=== PATIENT | female | born 1995 | race Caucasian/White ===

== ENCOUNTER 2018-07-22 12:24 | Emergency (ER) | payer OTHER ==
[~2018-07-22] VITALS: Ht 170.2 cm; Wt 54.4 kg
[~2018-07-22 12:24] MED LIST: ANAPROX275 MG PO; BIRTH CONTROLL; CELEXA10 MG PO; CONCERTA36 MG PO; FLONASE 0.05%50 MCG NASAL; HYDROCODONE-APA1 TA1 PO; LEVAQUIN 500 M500 MG PO; MACROBID 100 M100 M1 PO; NAPROSYN500 MG PO; ONDANSETRON HCL4 M2 PO; PYRIDIUM100 M1 PO; ZOFRAN ODT4 MG PO
[2018-07-22] MEDS ORDERED: PROAIR RESPICL90 MCG INH (12:37)
[2018-07-22 13:00] LABS: URINE BILIRUBIN NEGATIVE (Negative); URINE BLOOD 2+ (Negative); URINE CLARITY CLEAR; URINE COLOR YELLOW; URINE GLUCOSE-RANDOM NEGATIVE (Negative); URINE KETONES NEGATIVE (Negative); URINE LEUKOCYTES-REFLEX NEGATIVE (Negative); URINE NITRITE-REFLEX NEGATIVE (Negative); URINE PROTEIN NEGATIVE (Negative); URINE UROBILINOGEN 0.2 E.U./dl (0.2-1.0)
[2018-07-22 13:08] LABS: CASTS None Seen /LPF (None Seen); CRYSTALS None Seen /LPF (None Seen); SQUAMOUS 4-10 Moderate /LPF (0-3); URINE RBC 3-10 Few /HPF (0-2)
[2018-07-22 13:12] LABS: ABSOLUTE EOSINOPHILS 0.1 thou/uL (0.0-0.7); ABSOLUTE LYMPHOCYTES 0.7 thou/uL (0.8-5.3); ABSOLUTE MONOCYTES 0.5 thou/uL (0.0-1.2); ABSOLUTE NEUTROPHILS 3.2 thou/uL (1.6-8.1); BASOPHILS 0.6 %; HEMOGLOBIN 13.7 gm/dL (12.0-15.0); MCH 30.4 pg (26.0-34.0); MCHC 34.3 g/dL (28.0-37.0); MCV 88.7 fL (80.0-100.0); MONOCYTES 10.1 %; MPV 8.5 fl. (7.2-11.1); NUCLEATED RBCS 0 /100WBC; PLATELET COUNT* 213 thou/uL (150-400); POLYS 71.3 %; RBC 4.51 mil/uL (4.20-5.00); RDW-CV 13.4 % (10.5-14.5); WBC 4.5 thou/uL (4.0-11.0)
[2018-07-22 13:22] LABS: CALCIUM 9.3 mg/dL (8.5-10.1); CREATININE 0.7 mg/dL (0.6-1.3); POTASSIUM 3.4 mmol/L (3.5-5.1)
[2018-07-22 13:27] LABS: INFLUENZA A ANTIGEN None Detected (None Detect); INFLUENZA B ANTIGEN None Detected (None Detect)
[2018-07-22 13:35] LABS: ALBUMIN 4.3 g/dL (3.4-5.0); TOTAL BILIRUBIN 0.7 mg/dL (<0.1-1.0); TOTAL PROTEIN 7.7 g/dL (6.4-8.2)
[2018-07-22 14:18] VITALS: BP 122/70
--- NOTE | 2018-07-22 15:01 | EKG ---
[place] [address] ELECTROCARDIOGRAM REPORT Name: JAYSON AKBAR Room: [facility]#: [id number] Admission: 07/22/18 Attend Phys: Discharge: 07/22/18 Date of : [birth year] Report #: [id number] THIS REPORT FOR: //name// [facility] ED Test Date: 2018-07-22 Test Time: 12:48:44 Pat Name: JAYSON CARIASDAISHAHILARIO Department: Room: Gender: F Quality Assurance Supervisor Body: ARIS : 1995 Requested By: Jose Carreno Order Number: [id number] MD: Prashant Lazaro Measurements Intervals [place] Rate: 92 P: 53 IA: 137 QRS: 88 QRSD: 94 T: 30 QT: 364 QTc: 451 Interpretive Statements Sinus rhythm Probable left atrial enlargement Minimal ST depression, inferior leads Baseline wander in lead(s) II,III,aVF Compared to ECG 11/04/2008 11:25:27 ST (T wave) deviation now present Electronically Signed On 07-22-2018 15:00:54 PURIFICATION OPERATOR HELPER by Prsahant Lazaro [email or web address] <ELECTRONICALLY SIGNED> By: Prashant Lazaro MD, FAC 07/22/18 1500 1248 1248 Prashant Lazaro MD, [facility] /EPI
== END 2018-07-22 14:19 | disposition home or self-care (01) ==
LOC: M.ERS 12:24
PROVIDERS: Nurse Practitioner Family
DX: B34.9 Viral infection, unspecified (principal); J45.909 Unspecified asthma, uncomplicated; F41.9 Anxiety disorder, unspecified; F32.9 Major depressive disorder, single episode, unspecified; F90.9 Attention-deficit hyperactivity disorder, unspecified type; Z87.440 Personal history of urinary (tract) infections

== ENCOUNTER 2018-08-06 00:54 | Emergency (ER) | payer OTHER ==
[~2018-08-06] VITALS: Ht 170.2 cm; Wt 56.7 kg
[~2018-08-06 00:54] MED LIST changes: +PROAIR RESPICL90 MCG INH
[2018-08-06 01:19] LABS: URINE BILIRUBIN NEGATIVE (Negative); URINE BLOOD 2+ (Negative); URINE CLARITY CLEAR; URINE COLOR YELLOW; URINE GLUCOSE-RANDOM NEGATIVE (Negative); URINE KETONES NEGATIVE (Negative); URINE LEUKOCYTES-REFLEX NEGATIVE (Negative); URINE NITRITE-REFLEX NEGATIVE (Negative); URINE PROTEIN NEGATIVE (Negative); URINE SPECIFIC GRAVITY >= 1.030 (1.005-1.030); URINE UROBILINOGEN 0.2 E.U./dl (0.2-1.0)
[2018-08-06] MEDS ORDERED: NITROFURANTOIN100 MG PO (01:27)
[2018-08-06 02:53] LABS: CASTS None Seen /LPF (None Seen); MUCUS 0-3 Light strn/LPF (None Seen); SQUAMOUS 4-10 Moderate /LPF (0-3)
[2018-08-06 02:54] LABS: URINE WBC-REFLEX 6-15 Few /HPF (0-5)
[2018-08-06 02:55] LABS: CRYSTALS None Seen /LPF (None Seen)
[2018-08-06] MEDS ORDERED: NORCO 7.5-3251 EACH PO (03:06)
[2018-08-06] MEDS ORDERED: CIPROFLOXACIN500 M1 PO (03:06)
[2018-08-06 03:15] VITALS: BP 98/57
== END 2018-08-06 03:18 | disposition home or self-care (01) ==
LOC: M.ERS 00:54
PROVIDERS: Emergency Medicine
DX: N39.0 Urinary tract infection, site not specified (principal); F32.9 Major depressive disorder, single episode, unspecified; F41.9 Anxiety disorder, unspecified; J45.909 Unspecified asthma, uncomplicated; F90.9 Attention-deficit hyperactivity disorder, unspecified type; Z87.440 Personal history of urinary (tract) infections; Z88.8 Allergy status to other drugs, medicaments and biological substances

== ENCOUNTER 2019-01-26 04:22 | Emergency (ER) | payer OTHER ==
[~2019-01-26] VITALS: Ht 170.2 cm; Wt 59.0 kg
[~2019-01-26 04:22] MED LIST changes: +CIPROFLOXACIN500 M1 PO; +NITROFURANTOIN100 MG PO; +NORCO 7.5-3251 EACH PO
[2019-01-26 05:41] LABS: ABSOLUTE LYMPHOCYTES 0.4 thou/uL (0.8-5.3); ABSOLUTE MONOCYTES 0.6 thou/uL (0.0-1.2); ABSOLUTE NEUTROPHILS 4.6 thou/uL (1.6-8.1); BASOPHILS 0.2 %; EOSINOPHILS 0.5 %; HEMATOCRIT 41.8 % (37.0-47.0); HEMOGLOBIN 14.4 gm/dL (12.0-15.0); LYMPHOCYTES 7.8 %; MCH 30.5 pg (26.0-34.0); MCHC 34.4 g/dL (28.0-37.0); MCV 88.4 fL (80.0-100.0); MONOCYTES 10.3 %; MPV 9.1 fl. (7.2-11.1); NUCLEATED RBCS 0 /100WBC; PLATELET COUNT* 208 thou/uL (150-400); POLYS 81.2 %; RBC 4.73 mil/uL (4.20-5.00); RDW-CV 12.3 % (10.5-14.5); WBC 5.6 thou/uL (4.0-11.0)
[2019-01-26 05:51] LABS: CALCIUM 9.1 mg/dL (8.5-10.1); CREATININE 0.9 mg/dL (0.6-1.3); POTASSIUM 3.3 mmol/L (3.5-5.1)
[2019-01-26 05:56] LABS: ALBUMIN 4.1 g/dL (3.4-5.0); TOTAL PROTEIN 7.3 g/dL (6.4-8.2)
[2019-01-26 06:41] LABS: URINE BILIRUBIN NEGATIVE (Negative); URINE BLOOD 2+ (Negative); URINE CLARITY CLEAR; URINE COLOR YELLOW; URINE GLUCOSE-RANDOM NEGATIVE (Negative); URINE KETONES NEGATIVE (Negative); URINE LEUKOCYTES-REFLEX NEGATIVE (Negative); URINE NITRITE-REFLEX NEGATIVE (Negative); URINE PROTEIN NEGATIVE (Negative); URINE SPECIFIC GRAVITY 1.025 (1.005-1.030); URINE UROBILINOGEN 0.2 E.U./dl (0.2-1.0)
[2019-01-26 06:44] LABS: BACTERIA-REFLEX 1-9 Few /HPF (None Seen); CASTS None Seen /LPF (None Seen); CRYSTALS None Seen /LPF (None Seen); MUCUS None Seen strn/LPF (None Seen); SQUAMOUS 4-10 Moderate /LPF (0-3); URINE WBC-REFLEX 0-5 Rare /HPF (0-5)
[2019-01-26] MEDS ORDERED: BENTYL 20 MG TA20 M1 PO (08:08)
[2019-01-26] MEDS ORDERED: ZOFRAN ODT4 MG PO (08:08)
[2019-01-26 08:25] VITALS: BP 101/55
== END 2019-01-26 08:25 | disposition still patient (30) ==
LOC: M.ERS 04:22
PROVIDERS: Emergency Medicine
DX: K52.9 Noninfective gastroenteritis and colitis, unspecified (principal); F90.9 Attention-deficit hyperactivity disorder, unspecified type; J45.909 Unspecified asthma, uncomplicated; F32.9 Major depressive disorder, single episode, unspecified; F41.9 Anxiety disorder, unspecified; Z91.048 Other nonmedicinal substance allergy status; Z88.8 Allergy status to other drugs, medicaments and biological substances